=== PATIENT | female | born 1980 | race African-American/Black ===

== ENCOUNTER 2016-12-30 09:07 | Emergency (ER) | payer OTHER ==
[~2016-12-30] VITALS: Ht 167.6 cm; Wt 81.6 kg
[2016-12-30 09:14] VITALS: BP 144/98
--- NOTE | 2016-12-30 09:20 | NUR ---
Patient ambulated to bed 8. RN evaluating patient at bedside.
[2016-12-30] MEDS ORDERED: KETOROLAC 60 MG/2 ML VIAL IM ONE (09:50)
--- NOTE | 2016-12-30 10:05 | NUR ---
36F C/O 12/16 "SHARP" BL LOWER BACK PAIN X 4 DAYS; PT STATES "I PICKED UP MY SON AND I FELT A PULL"; PT VANCE ANY INJURIES OR RECENT FALLS; PT MOVES ALL FOUR EXTREMITIES; DENIES N/V/D; A&OX4; RR ARE EVEN AND UNLABORED; VSS; PATIENT POSITIONED FOR COMFORT; ALL NEEDS MET AT THIS TIME
[2016-12-30 10:35] VITALS: BP 135/87
--- NOTE | 2016-12-30 10:35 | NUR ---
Patient discharged with v/s stable. Written and verbal after care instructions given and explained. Patient alert, oriented and verbalized understanding of instructions. Ambulatory with steady gait. All questions addressed prior to discharge. ID band removed. Patient advised to follow up with PMD. Rx of Felxeril and Ibruprofen given. Patient educated on indication of medication including possible reaction and side effects. Opportunity to ask questions provided and answered.
== END 2016-12-30 10:35 | disposition home or self-care (01) ==
LOC: MED 09:07
DX: S33.5XXA Sprain of ligaments of lumbar spine, initial encounter (principal); Z88.0 Allergy status to penicillin; X58.XXXA Exposure to other specified factors, initial encounter; Y93.89 Activity, other specified; Y92.89 Other specified places as the place of occurrence of the external cause; Y99.8 Other external cause status
CPT/HCPCS: 81002; 81025; 96372; 99283; J1885

== ENCOUNTER 2017-05-19 14:52 | Emergency (ER) | payer OTHER ==
[~2017-05-19] VITALS: Ht 167.6 cm; Wt 81.6 kg
[2017-05-19 15:27] VITALS: BP 116/92
--- NOTE | 2017-05-19 16:15 | NUR ---
27f bib with c/o bodyaches, cough, and sore throat x "couple of days" hx--denies, PT AAO, NO COUGHING NOTED, SEEN BY
[2017-05-19 16:23] VITALS: BP 116/92
== END 2017-05-19 16:23 | disposition home or self-care (01) ==
LOC: MED 14:52
DX: J11.1 Influenza due to unidentified influenza virus with other respiratory manifestations (principal); Z88.0 Allergy status to penicillin
CPT/HCPCS: 99282

== ENCOUNTER 2018-07-17 15:54 | Emergency (ER) | payer OTHER ==
[~2018-07-17] VITALS: Ht 165.1 cm; Wt 86.6 kg
[2018-07-17 16:11] VITALS: BP 149/94
--- NOTE | 2018-07-17 16:15 | NUR ---
PT AMBULATED TO ER BED 05
--- NOTE | 2018-07-17 16:20 | NUR ---
PA AT BEDSIDE PERFORMING MSE
[2018-07-17] MEDS ORDERED: KETOROLAC 60 MG/2 ML VIAL IM ONE (16:35)
[2018-07-17] MEDS ORDERED: DEXAMETHASONE 10 MG/ML VIAL IM ONE (16:35)
--- NOTE | 2018-07-17 16:42 | NUR ---
PT BIB SELF C/O LEFT SIDED LOWER BACK PAIN RADIATING LLE X 3 DAYS----PAIN WITH SUDDEN MOVEMENTS. DENIES RECENT INJURY , DENIES DYSURIA---AMBULATORY WITH SLOW STEADY GAIT. PT DENIES N/V/D; SKIN IS INTACT, PINK/WARM/DRY; AAOX4, PERRL, WITH EVEN AND STEADY GAIT; LUNGS CLEAR BL, BREATHING UNLABORED; HR EVEN AND REGULAR, BL PERIPHERAL PULSES PRESENT; BS ACTIVE X4, NO TENDERNESS TO PALPATION, NO HEPATOSPLENOMEGALLY PALPATED, RESONANT TO PERCUSSION; PT DENIES ANY FEVER, CP, SOB, OR COUGH AT THIS TIME; PT STATES 8/10 PAIN AT THIS TIME; VSS; PATIENT POSITIONED FOR COMFORT; HOB ELEVATED; BEDRAILS UP X2; BED DOWN.
[2018-07-17 17:20] VITALS: BP 143/90
--- NOTE | 2018-07-17 17:21 | NUR ---
Patient discharged with v/s stable. Written and verbal after care instructions given and explained. Patient alert, oriented and verbalized understanding of instructions. Ambulatory with steady gait. All questions addressed prior to discharge. ID band removed. Patient advised to follow up with PMD. Rx of Tylenol & Motrin given. Patient educated on indication of medication including possible reaction and side effects. Opportunity to ask questions provided and answered.
== END 2018-07-17 17:21 | disposition home or self-care (01) ==
LOC: MED 15:54
DX: S39.012A Strain of muscle, fascia and tendon of lower back, initial encounter (principal); M54.16 Radiculopathy, lumbar region; Z88.0 Allergy status to penicillin; X58.XXXA Exposure to other specified factors, initial encounter; Y93.89 Activity, other specified; Y92.89 Other specified places as the place of occurrence of the external cause; Y99.8 Other external cause status
CPT/HCPCS: 81025; 96372; 99283; J1100; J1885

== ENCOUNTER 2023-12-21 08:11 | Emergency (ER) | payer OTHER ==
[~2023-12-21] VITALS: Ht 167.6 cm; Wt 84.0 kg
[2023-12-21 08:16] VITALS: BP 153/93; PULSE 107; RESP 18; TEMP 98; O2SAT 100
[2023-12-21 10:34] LABS: APPEARANCE,URINE CLEAR (CLEAR); BILIRUBIN,URINE NEGATIVE (NEGATIVE); BLOOD, URINE TRACE-I (NEGATIVE); COLOR,URINE YELLOW (YELLOW); LEUKOCYTE ESTERASE ,URINE NEGATIVE (NEGATIVE); NITRITE, URINE NEGATIVE (NEGATIVE); PROTEIN,URINE NEGATIVE (NEGATIVE); UGLUCOSE NEGATIVE (NEGATIVE); UROBILINOGEN,URINE 0.2 EU/dL (0.2 - 1)
[2023-12-21 10:58] LABS: BACTERIA,URINE OCCASSIONAL /HPF (None Seen); RBC,URINE 0-5 /HPF (0-5); SQUAMOUS EPITHELIAL CELL,UR 0-3 (FEW) /LPF (0-3 (FEW)); WBC,URINE 0-5 /HPF (0-5)
[2023-12-21] MEDS ORDERED: NAPR-1704 PO (11:07)
== END 2023-12-21 11:15 | disposition home or self-care (01) ==
LOC: MED 08:11
DX: N76.0 Acute vaginitis (principal); F17.200 Nicotine dependence, unspecified, uncomplicated; Z79.899 Other long term (current) drug therapy; Z88.0 Allergy status to penicillin
CPT/HCPCS: 81001; 81025; 87491; 99283